=== PATIENT | female | born 1950 | race Caucasian/White ===

== ENCOUNTER → 2017-03-13 | Outpatient (CLI) | payer OTHER, MEDICARE ==
[~2017-03-13] MED LIST: ASPI500T50 PO; [UNRECOGNIZED DRUG - OTHER] PO
--- NOTE | 2017-03-13 14:54 | Diagnostic Imaging Report ---
PA and lateral views of the chest. INDICATION: Cough. FINDINGS: The lungs are clear. The heart size is normal. No effusion or pneumothorax. The mediastinum and karina appear unremarkable. IMPRESSION: Unremarkable exam. Dictated by: Dictated on workstation # [id number]
== END ==
LOC: RAD 14:23
PROVIDERS: ATTEND Nurse Practitioner
DX: R05 Cough (principal); Z87.891 Personal history of nicotine dependence
CPT/HCPCS: 71020

== ENCOUNTER → 2018-08-20 | Outpatient (CLI) | payer MEDICARE, OTHER ==
--- NOTE | 2018-08-20 11:41 | Diagnostic Imaging Report ---
CLINICAL INDICATION: Patient with vision problems and headache. EXAM: Axial CT scan of brain performed without IV contrast. COMPARISON: None. FINDINGS: Skull streak artifact obscures portions of the brainstem and posterior fossa. There is no evidence of acute cerebral infarct, intracranial hemorrhage, or gross mass effect. The brain parenchymal volume appears appropriate for patient's age. There is normal hensley-white matter distinction. There is no significant midline shift or herniation. There is no evidence of hydrocephalus. The basal cisterns are unremarkable. The skull, extracranial soft tissue, and orbits are unremarkable. The paranasal sinuses are unremarkable. Temporal bones show no significant abnormality. IMPRESSION: Unremarkable CT scan of the brain for age. Dictated by: Dictated on workstation # [id number]
== END ==
LOC: RAD 11:19
PROVIDERS: ATTEND Nurse Practitioner Family
DX: Z00.00 Encounter for general adult medical examination without abnormal findings (principal); G44.029 Chronic cluster headache, not intractable; H53.9 Unspecified visual disturbance; M79.644 Pain in right finger(s)
CPT/HCPCS: 70450

== ENCOUNTER → 2018-12-17 | Outpatient (CLI) | payer MEDICARE, OTHER ==
--- NOTE | 2018-12-17 13:24 | Diagnostic Imaging Report ---
PROCEDURE: CT cervical spine without contrast. TECHNIQUE: Multiple contiguous axial images were obtained through the cervical spine without the use of intravenous contrast. Sagittal and coronal reformations were then performed. INDICATION: Neck pain. COMPARISON: No prior studies are available for comparison. FINDINGS: There is some straightening of the normal cervical lordotic curvature. Minimal retrolisthesis of C5 on C6 is noted. There is degenerative disc disease at C5-6 and C6-7 levels with mild to moderate disc space narrowing and marginal spurring. Remaining cervical discs show normal height. Degenerative changes at C5-6 level also demonstrates uncovertebral joint change resulting in moderate neural foraminal narrowing. There appears to be some mild central canal narrowing as well. All other levels demonstrate patent bony canal and neural foramina. Odontoid is intact. No fractures are seen. The prevertebral tissues are within normal limits. IMPRESSION: Lower cervical spondylosis with mild central canal and moderate neural foraminal narrowing at C5-6 level. No acute bony abnormality is detected. Dictated by: Dictated on workstation # [id number]
--- NOTE | 2018-12-17 13:25 | Diagnostic Imaging Report ---
PROCEDURE: CT thoracic spine without contrast. TECHNIQUE: Multiple axial computerized tomography images were obtained from the base of the thoracic spine to the vertex without intravenous contrast. INDICATION: Back pain and spinal stenosis. COMPARISON: No prior studies are available for comparison. FINDINGS: There is mild right convexity thoracic scoliotic curvature. There is normal kyphotic curvature. The vertebral body heights are maintained. No acute compression fracture is seen. There is generalized thoracic spondylosis with variable disc space narrowing and marginal spurring. The paraspinous tissues are unremarkable. The bony canal appears to be patent. IMPRESSION: Generalized thoracic spondylosis. No acute bony abnormality is detected. Dictated by: Dictated on workstation # [id number]
== END ==
LOC: RAD 12:04
PROVIDERS: ATTEND Family Medicine
DX: M48.02 Spinal stenosis, cervical region (principal); M47.812 Spondylosis without myelopathy or radiculopathy, cervical region; M48.04 Spinal stenosis, thoracic region; M47.814 Spondylosis without myelopathy or radiculopathy, thoracic region
CPT/HCPCS: 72125; 72128

== ENCOUNTER 2019-01-04 17:47 | Emergency (ER) | payer MEDICARE, OTHER ==
[~2019-01-04] VITALS: Ht 171.4 cm; Wt 77.1 kg
--- OUTSIDE RECORDS SUMMARY | 2019-01-04 17:54 | XMS REPORT | Continuity of Care Document ---
Author Author [facility] Organization [facility] Address Unknown Phone Unavailable Allergies Active Description Code Type Severity Reaction Onset Reported/Identified Relationship to Patient Clinical Status Yes ANTIHISTIMINES ANTIHISTIMINES Unknown N/A 04/30/2012 Yes DECONGESTANTS DECONGESTANTS Unknown N/A 04/30/2012 Yes SOME ANITBIOTICS SOME ANITBIOTICS Unknown N/A 04/30/2012 Medications There is no data. Problems Date Dx Coded Attending Type Code Diagnosis Diagnosed By 01/07/2015 EFREN KEENE MD Ot 462 ACUTE PHARYNGITIS 01/07/2015 EFREN KEENE MD Ot 464.00 ACUTE LARYNGITIS W/O OBSTRUCTION 01/07/2015 EFREN KEENE MD Ot 465.9 ACUTE URI NOS 01/10/2015 EFREN KEENE MD Ot 462 01/10/2015 EFREN KEENE MD Ot 464.00 01/10/2015 EFREN KEENE MD Ot 465.9 01/10/2015 EFREN KEENE MD Ot 462 01/10/2015 EFREN KEENE MD Ot 464.00 01/10/2015 EFREN KEENE MD Ot 465.9 08/21/2016 MIRIAM MURRAY MD R Ot M16.12 UNILATERAL PRIMARY OSTEOARTHRITIS, LEFT 08/21/2016 MIRIAM MURRAY MD R Ot M25.552 PAIN IN LEFT HIP 08/21/2016 MIRIAM MURARY MD R Ot M48.06 SPINAL STENOSIS, LUMBAR REGION 08/21/2016 MIRIAM MURRAY MD R Ot M51.26 OTHER INTERVERTEBRAL DISC DISPLACEMENT, 08/21/2016 MIRIAM MURRAY MD R Ot M54.10 RADICULOPATHY, SITE UNSPECIFIED 08/31/2016 MIRIAM MURRAY MD R Ot M16.12 UNILATERAL PRIMARY OSTEOARTHRITIS, LEFT 08/31/2016 SEGLIE MD, MIRIAM R Ot M25.552 PAIN IN LEFT HIP 08/31/2016 TERRI RODRIGUES, MIRIAM R Ot M48.06 SPINAL STENOSIS, LUMBAR REGION 08/31/2016 TERRI RODRIGUES MIRIAM R Ot M51.26 OTHER INTERVERTEBRAL DISC DISPLACEMENT, 08/31/2016 TERRI RODRIGUES MIRIAM R Ot M54.10 RADICULOPATHY, SITE UNSPECIFIED 08/31/2016 KHOA KENYON MD Ot M16.12 UNILATERAL PRIMARY OSTEOARTHRITIS, LEFT 08/31/2016 KHOA KENYON MD Ot M51.16 INTERVERTEBRAL DISC DISORDERS W RADICULO 08/31/2016 KHOA KENYON MD Ot Z79.899 OTHER SECRET CODE EXPERT (CURRENT) DRUG THERAPY 09/05/2016 MIRIAM MURRAY MD R Ot M16.12 UNILATERAL PRIMARY OSTEOARTHRITIS, LEFT 09/05/2016 TERRI RODRIGUES MIRIAM R Ot M25.552 PAIN IN LEFT HIP 09/05/2016 RICCO MURRAY MDYD R Ot M48.06 SPINAL STENOSIS, LUMBAR REGION 09/05/2016 MIRIAM MURRAY MD R Ot M51.26 OTHER INTERVERTEBRAL DISC DISPLACEMENT, 09/05/2016 MIRIAM MURRAY MD R Ot M54.10 RADICULOPATHY, SITE UNSPECIFIED 09/10/2016 MIRIAM MURRAY MD R Ot M16.12 UNILATERAL PRIMARY OSTEOARTHRITIS, LEFT 09/10/2016 TERRI RODRIGUES MIRIAM R Ot M25.552 PAIN IN LEFT HIP 09/10/2016 TERRI RODRIGUES MIRIAM R Ot M48.06 SPINAL STENOSIS, LUMBAR REGION 09/10/2016 TERRI RODRIGUES MIRIAM R Ot M51.26 OTHER INTERVERTEBRAL DISC DISPLACEMENT, 09/10/2016 TERRI RODRIGUES MIRIAM R Ot M54.10 RADICULOPATHY, SITE UNSPECIFIED 09/20/2016 KHOA KENYON MD Ot M16.12 UNILATERAL PRIMARY OSTEOARTHRITIS, LEFT 09/20/2016 KHOA KENYON MD, Ot M51.16 INTERVERTEBRAL DISC DISORDERS W RADICULO 09/20/2016 KHOA KENYON MD Ot Z79.899 OTHER LONG-TERM (CURRENT) DRUG THERAPY 10/15/2016 MIRIAM MURRAY MD R Ot M16.12 UNILATERAL PRIMARY OSTEOARTHRITIS, LEFT 10/15/2016 MIRIAM MURRAY MD R Ot M25.552 PAIN IN LEFT HIP 10/15/2016 TERRI RODRIGUES, MIRIAM R Ot M48.06 SPINAL STENOSIS, LUMBAR REGION 10/15/2016 TERRI RODRIGUES, MIRIAM R Ot M51.26 OTHER INTERVERTEBRAL DISC DISPLACEMENT, 10/15/2016 TERRI RODRIGUES, MIRIAM R Ot M54.10 RADICULOPATHY, SITE UNSPECIFIED 10/17/2016 CHANTALE RODRIGUSE, KHOA [place] Ot M25.552 PAIN IN LEFT HIP 10/17/2016 CHANTAEL RODRIGUES, KHOA [place] Ot M54.5 LOW BACK PAIN 11/07/2016 CHANTALE RODRIGUES, KHOA [place] Ot M25.552 PAIN IN LEFT HIP 11/07/2016 CHANTALE RODRIGUES, KHOA [place] Ot M54.5 LOW BACK PAIN 03/13/2017 TERRI RODRIGUES MIRIAM R Ot M16.12 UNILATERAL PRIMARY OSTEOARTHRITIS, LEFT 03/13/2017 TERRI RODRIGUES, MIRIAM R Ot M25.552 PAIN IN LEFT HIP 03/13/2017 MIRIAM MURRAY MD R Ot M48.06 SPINAL STENOSIS, LUMBAR REGION 03/13/2017 MIRIAM MURRAY MD R Ot M51.26 OTHER INTERVERTEBRAL DISC DISPLACEMENT, 03/13/2017 RICCO MURRAY MDYD R Ot M54.10 RADICULOPATHY, SITE UNSPECIFIED 03/19/2017 MARIKA RILEY CEMENTER MACHINE Ot R05 COUGH 03/19/2017 MARIKA RILEY CEMENTER MACHINE Ot Z87.891 PERSONAL HISTORY OF NICOTINE DEPENDENCE 04/05/2017 MARKIA RILEY CEMENTER MACHINE Ot R05 COUGH 04/05/2017 MARIKA RILEY CEMENTER MACHINE Ot Z87.891 PERSONAL HISTORY OF NICOTINE DEPENDENCE 04/25/2017 MARIKA RILEY CEMENTER MACHINE Ot R05 COUGH 04/25/2017 MARIKA RILEY CEMENTER MACHINE Ot Z87.891 PERSONAL HISTORY OF NICOTINE DEPENDENCE 08/18/2018 TERRI RODRIGUES MIRIAM R Ot M16.12 UNILATERAL PRIMARY OSTEOARTHRITIS, LEFT 08/18/2018 TERRI RODRIGUES MIRIAM R Ot M25.552 PAIN IN LEFT HIP 08/18/2018 RICCO MURRAY MDYD R Ot M48.06 SPINAL STENOSIS, LUMBAR REGION 08/18/2018 TERRI RODRIGUES MIRIAM R Ot M51.26 OTHER INTERVERTEBRAL DISC DISPLACEMENT, 08/18/2018 TERRI RODRIGUES MIRIAM R Ot M54.10 RADICULOPATHY, SITE UNSPECIFIED 08/18/2018 MARIKA RILEY CEMENTER MACHINE Ot R05 COUGH 08/18/2018 MARIKA RILEY CEMENTER MACHINE Ot Z87.891 PERSONAL HISTORY OF NICOTINE DEPENDENCE 08/21/2018 THANH ROCKWELL R CEMENTER MACHINE Ot G44.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 CLUSTER HEADACHE, NOT INTRACTABL 08/21/2018 MOIZ THANH R CEMENTER MACHINE Ot H53.9 UNSPECIFIED VISUAL DISTURBANCE 08/21/2018 MOIZ THANH R CEMENTER MACHINE Ot M79.644 PAIN IN RIGHT FINGER(S) 08/21/2018 MOIZ THANH R CEMENTER MACHINE Ot Z00.00 ENCNTR FOR GENERAL ADULT MEDICAL EXAM W/ 09/09/2018 MOIZ THANH R CEMENTER MACHINE Ot G44.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 CHRONIC CLUSTER HEADACHE, NOT INTRACTABL 09/09/2018 MOIZ THANH R CEMENTER MACHINE Ot H53.9 UNSPECIFIED VISUAL DISTURBANCE 09/09/2018 MOIZ THANH R CEMENTER MACHINE Ot M79.644 PAIN IN RIGHT FINGER(S) 09/09/2018 MOIZ THANH R CEMENTER MACHINE Ot Z00.00 ENCNTR FOR GENERAL ADULT MEDICAL EXAM W/ 12/16/2018 TERRI RODRIGUES, MIRIAM R Ot M16.12 UNILATERAL PRIMARY OSTEOARTHRITIS, LEFT 12/16/2018 TERRI RODRIGUES, MIRIAM R Ot M25.552 PAIN IN LEFT HIP 12/16/2018 TERRI RODRIGUES, MIRIAM R Ot M48.06 SPINAL STENOSIS, LUMBAR REGION 12/16/2018 TERRI RODRIGUES, MIRIAM R Ot M51.26 OTHER INTERVERTEBRAL DISC DISPLACEMENT, 12/16/2018 TERRI RODRIGUES, MIRIAM R Ot M54.10 RADICULOPATHY, SITE UNSPECIFIED 12/16/2018 MARIKA RILYE CEMENTER MACHINE Ot R05 COUGH 12/16/2018 MARIKA RILEY CEMENTER MACHINE Ot Z87.891 PERSONAL HISTORY OF NICOTINE DEPENDENCE 12/16/2018 THANH ROCKWELL R CEMENTER MACHINE Ot 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 Results There is no data. Encounters ACCT No. Visit Date/Time Discharge Status Pt. Type Provider Facility Loc./Unit Complaint [id number] 12/17/2018 12:04:00 12/17/2018 23:59:59 CLS Outpatient MIRIAM MURRAY MD [facility] RAD NECK PAIN [id number] 12/09/2018 14:29:00 12/09/2018 23:59:59 CLS Preadmit MIRIAM MURRAY MD [facility] RAD ABNORMAL XRAY [id number] 08/20/2018 11:19:00 08/20/2018 23:59:59 CLS Outpatient THANH ROCKWELL CEMENTER MACHINE [facility] RAD THUMB PAIN [id number] 03/13/2017 14:23:00 03/13/2017 23:59:59 CLS Outpatient MARIKA RILEY CEMENTER MACHINE [facility] RAD COUGH,HX SMOKER [id number] 09/28/2016 10:32:00 11/07/2016 13:44:00 DIS Outpatient KHOA KENYON MD [facility] REHAB LUMBAGO, L HIP PAIN [id number] 08/31/2016 07:51:00 08/31/2016 09:02:00 DIS Outpatient KHOA KENYON MD [facility] CARD M51.16 [id number] 08/17/2016 09:46:00 08/17/2016 23:59:59 CLS Outpatient MIRIAM MURRAY MD [facility] RAD LT HIP DECREASED ROM, RADICULOPATHY [id number] 01/07/2015 09:38:00 01/07/2015 23:59:59 CLS Emergency EFREN KEENE MD [facility] ER SORE THROAT/HEADACHE [id number] 01/04/2019 17:49:00 ACT Emergency CODY BERNSTEIN CEMENTER MACHINE [facility] ER LEFT CALF PAIN,SWELLING
[2019-01-04 18:25] LABS: BASOPHILS % (AUTO) 0 % (0-10); EOSINOPHILS # (AUTO) 0.1 10^3/uL (0.0-0.3); EOSINOPHILS % (AUTO) 1 % (0-10); HEMATOCRIT 41 % (35-52); HEMOGLOBIN 13.8 G/DL (11.5-16.0); LYMPHOCYTES # (AUTO) 2.2 X 10^3 (1.0-4.0); LYMPHOCYTES % (AUTO) 24 % (12-44); MEAN CORPUSCULAR HEMOGLOBIN 33 PG (25-34); MEAN CORPUSCULAR HGB CONC 34 G/DL (32-36); MEAN CORPUSCULAR VOLUME 98 FL (80-99); MEAN PLATELET VOLUME 9.7 FL (7.4-10.4); MONOCYTES # (AUTO) 0.4 X 10^3 (0.0-1.0); MONOCYTES % (AUTO) 5 % (0-12); NEUTROPHILS # (AUTO) 6.2 X 10^3 (1.8-7.8); NEUTROPHILS % (AUTO) 70 % (42-75); PLATELET COUNT 269 10^3/uL (130-400); RED CELL DISTRIBUTION WIDTH 12.9 % (10.0-14.5); WHITE BLOOD COUNT 8.9 10^3/uL (4.3-11.0)
--- NOTE | 2019-01-04 18:33 | ED Lower Extremity ---
General Chief Complaint: Lower Extremity Stated Complaint: LEFT CALF PAIN,SWELLING Source: patient Exam Limitations: no limitations History of Present Illness Date Seen by Provider: Jan 04, 2019 Time Seen by Provider: 18:29 Initial Comments To ER with c/o left calf pain and swelling x2-3 days. No known injury. States that she has a sister who has had blood clots. She herself has never had blood clots however. She does smoke. She does not take any exogenous estrogen. She states that she did personally test positive for antiphospholipid syndrome. She takes baby aspirin daily. No other anticoagulants. Onset: yesterday Severity: moderate Pain/Injury Location: left leg Modifying Factors: Worse With Movement Allergies and Home Medications Allergies Uncoded Allergies: ANTIHISTIMINES (Allergy, 04/30/12) DECONGESTANTS (Allergy, 04/30/12) SOME ANITBIOTICS (Adverse Reaction, 04/30/12) STOMACH UPSET Home Medications [Essgic] , 1 TAB PO NEEDED, (Reported) FOR HEADACHE Patient Home Medication List Home Medication List Reviewed: Yes Review of Systems Constitutional: see HPI EENTM: see HPI Respiratory: no symptoms reported Cardiovascular: no symptoms reported Genitourinary: no symptoms reported Musculoskeletal: no symptoms reported Past Xxpidwq-Qndupg-Mshfmn Hx Patient Social History Alcohol Use: Denies Use Recreational Drug Use: No Smoking Status: Current Everyday Smoker Type Used: Cigarettes 2nd Hand Smoke Exposure: Yes Recent Foreign Travel: No Contact w/Someone Who Travel: No Physical Abuse: No Sexual Abuse: No Past Medical History Surgeries: Yes Gallbladder, Hysterectomy, Orthopedic Respiratory: Yes Cardiac: No Neurological: Yes Headaches /Migraines Gastrointestinal: Yes (DIVERTICULOSIS) Musculoskeletal: No Endocrine: No Cancer: No Psychosocial: No Blood Disorders: Yes Physical Exam Vital Signs Vital Signs - First Documented 01/04/19 17:54 Temp 98.3 Pulse 97 Resp 15 B/P (MAP) 121/86 (98) Pulse Ox 95 O2 Delivery Room Air Capillary Refill : Height, Weight, BMI Height: 5'7.00" Weight: 170lbs. 0.0oz. 77.930000tf; 26.6 BMI Method:Stated General Appearance: WD/WN, no apparent distress HEENT: PERRL/EOMI, normal ENT inspection Cardiovascular: regular rate, rhythm, no murmur Respiratory: no respiratory distress, no accessory muscle use Gastrointestinal: normal bowel sounds, non tender, soft Hips: bilateral hip non-tender, bilateral hip normal inspection, bilateral hip normal range of motion Legs: left leg swelling, left leg other (very minimal but present swelling. Strong dorsalis pedis pulse.) Knees: bilateral knee non-tender, bilateral knee normal inspection, bilateral knee normal range of motion Ankles: bilateral ankle non-tender, bilateral ankle normal inspection, bilateral ankle normal range of motion Feet: bilateral foot non-tender, bilateral foot normal inspection, bilateral foot normal range of motion Neurologic/Psychiatric: alert, normal mood/affect, oriented x 3 Skin: normal color, warm/dry Progress/Results/Core Measures Results/Orders Lab Results Laboratory Tests Test 01/04/19 18:10 Range/Units White Blood Count 8.9 4.3-11.0 10^3/uL Red Blood Count 4.16 L 4.35-5.85 10^6/uL Hemoglobin 13.8 11.5-16.0 G/DL Hematocrit 41 35-52 % Mean Corpuscular Volume 98 80-99 FL Mean Corpuscular Hemoglobin 33 25-34 PG Mean Corpuscular Hemoglobin Concent 34 32-36 G/DL Red Cell Distribution Width 12.9 10.0-14.5 % Platelet Count 269 130-400 10^3/uL Mean Platelet Volume 9.7 7.4-10.4 FL Neutrophils (%) (Auto) 70 42-75 % Lymphocytes (%) (Auto) 24 12-44 % Monocytes (%) (Auto) 5 0-12 % Eosinophils (%) (Auto) 1 0-10 % Basophils (%) (Auto) 0 0-10 % Neutrophils # (Auto) 6.2 1.8-7.8 X 10^3 Lymphocytes # (Auto) 2.2 1.0-4.0 X 10^3 Monocytes # (Auto) 0.4 0.0-1.0 X 10^3 Eosinophils # (Auto) 0.1 0.0-0.3 10^3/uL Basophils # (Auto) 0.0 0.0-0.1 10^3/uL Sodium Level 141 135-145 MMOL/L Potassium Level 4.1 3.6-5.0 MMOL/L Chloride Level 106 98-107 MMOL/L Carbon Dioxide Level 25 21-32 MMOL/L Anion Gap 10 5-14 MMOL/L Blood Urea Nitrogen 8 7-18 MG/DL Creatinine 0.74 0.60-1.30 MG/DL Estimat Glomerular Filtration Rate > 60 BUN/Creatinine Ratio 11 Glucose Level 98 70-105 MG/DL Calcium Level 9.6 8.5-10.1 MG/DL Corrected Calcium 9.6 8.5-10.1 MG/DL Total Bilirubin 0.2 0.1-1.0 MG/DL Aspartate Amino Transf (AST/SGOT) 18 5-34 U/L Alanine Aminotransferase (ALT/SGPT) 45 0-55 U/L Alkaline Phosphatase 133 40-136 U/L Total Protein 7.0 6.4-8.2 GM/DL Albumin 4.0 3.2-4.5 GM/DL My Orders Orders - CODY BERNSTEIN DIRECTOR CUSTOMER Us Venous Lower Ext Lt (01/04/19 17:51) Cbc With Automated Diff (01/04/19 17:51) Comprehensive Metabolic Panel (01/04/19 17:51) Vital Signs/I&O 01/04/19 17:54 Temp 98.3 Pulse 97 Resp 15 B/P (MAP) 121/86 (98) Pulse Ox 95 O2 Delivery Room Air Departure Communication (Admissions) Family Conversation 0-she has positive for DVT on ultrasound. I discussed with her shortness of breath or chest pain. She has had some right posterior lower chest wall pain for the past week. She's been treated for bronchitis with antibiotics. She is finishing her antibiotic tomorrow. She does have some chronic shortness of breath and states that she is a little more short of breath for the past week but she attributes that to COPD from smoking. I did recommend a CT angiogram of the chest but advised her that it would not likely change our treatment plan since she is not tachycardic, not hypotensive and not hypoxic. If it were present, it would be a small clot burden given her hemodynamic stability. She states "then why would we even do it?". After further discussion she does not want to proceed with a CT angiogram of the chest since it will not change our management plan given her hemodynamic stability. We will discharge to home on Eliquis, follow-up with Dr. Romeo this week. She agrees with this plan and is very pleasant and appreciative of care. NAME: JOSÉ MIGUEL RIVERA [facility] REC#: [id number] PT STATUS: REG ER : 1950 PHYSICIAN: CODY BERNSTEIN APRN ADMIT DATE: 01/04/19/ER Draft Date of Exam:01/04/19 US VENOUS LOWER EXT LT PROCEDURE: US left lower extremity venous. TECHNIQUE: Multiple real-time grayscale images were obtained over the left lower extremity in various projections. Additional duplex Doppler and color Doppler images were also obtained. DATE: January 04, 2019. INDICATION: 68-year-old female, left calf pain. COMPARISON: None. FINDINGS: The left common femoral vein and left popliteal vein appear compressible with normal flow. The visualized portions of the left deep femoral vein are patent. The left superficial femoral vein does demonstrate blood flow and response to augmentation. The left posterior tibial vein is incompletely compressible at the level of the mid calf. The left peroneal vein is noncompressible at the level of the midcalf likely relating to thrombus. IMPRESSION: Thrombus within the left posterior tibial and peroneal veins. Dictated on workstation # [id number] Dict: 01/04/191848 Trans: 01/04/[address] [facility] [id number] Interpreted by: KAIA SCHNEIDER MD Electronically signed by: Impression Primary Impression: Left leg DVT Qualified Codes: I82.442 - Acute embolism and thrombosis of left tibial vein Disposition: 01 HOME, SELF-CARE Condition: Stable Departure-Patient Inst. Decision time for Depature: 19:04 Referrals: MIRIAM ROMEO MD (PCP/Family) Primary Care Physician Patient Instructions: Deep Vein Thrombosis (Blood Clots in the Legs) (DC) Add. Discharge Instructions: 1. Use of compression stockings will help with swelling and may help reduce the subsequent discomfort and aching in the leg. Return to ER for any severe shortness of breath or other concerns. Call Dr. Romeo tomorrow to make an appointment to be seen for follow-up and to ask if he has any samples of Eliquis or prescription coupons. All discharge instructions reviewed with patient and/or family. Voiced understanding. Scripts Apixaban (Eliquis) 5 Mg Tablet 5 MG PO UD, #56 TAB 10 mg twice a day for 7 days then 5 mg twice a day thereafter Prov: CODY BERNSTEIN APRN 01/04/19 Copy Copies To 1: MIRIAM ROMEO MD, PETER J APRN Jan 04, 2019 18:33
[2019-01-04 18:43] LABS: ALANINE AMINOTRANSFERASE 45 U/L (0-55); ALKALINE PHOSPHATASE 133 U/L (40-136); BILIRUBIN,TOTAL 0.2 MG/DL (0.1-1.0); BUN/CREATININE RATIO 11; CALCIUM 9.6 MG/DL (8.5-10.1); CARBON DIOXIDE 25 MMOL/L (21-32); CHLORIDE 106 MMOL/L (98-107); CREATININE SERUM 0.74 MG/DL (0.60-1.30); GFR ESTIMATED > 60; GLUCOSE 98 MG/DL (70-105); POTASSIUM 4.1 MMOL/L (3.6-5.0); SODIUM 141 MMOL/L (135-145)
--- NOTE | 2019-01-04 18:53 | Diagnostic Imaging Report ---
PROCEDURE: US left lower extremity venous. TECHNIQUE: Multiple real-time grayscale images were obtained over the left lower extremity in various projections. Additional duplex Doppler and color Doppler images were also obtained. DATE: January 04, 2019. INDICATION: 68-year-old female, left calf pain. COMPARISON: None. FINDINGS: The left common femoral vein and left popliteal vein appear compressible with normal flow. The visualized portions of the left deep femoral vein are patent. The left superficial femoral vein does demonstrate blood flow and response to augmentation. The left posterior tibial vein is incompletely compressible at the level of the mid calf. The left peroneal vein is noncompressible at the level of the midcalf likely relating to thrombus. IMPRESSION: Thrombus within the left posterior tibial and peroneal veins. Dictated by: Dictated on workstation # [id number]
[2019-01-04] MEDS ORDERED: APIX5TAB PO (19:07)
[2019-01-04 19:15] VITALS: BP 124/79
[2019-01-04] MEDS ORDERED: APIXABAN 5 MG (ELIQUIS) TABLET PO SCH (19:15)
== END 2019-01-04 19:17 | disposition home or self-care (01) ==
LOC: EDUNIT# 17:47 → ER 17:49
DX: I82.402 Acute embolism and thrombosis of unspecified deep veins of left lower extremity (principal); G43.909 Migraine, unspecified, not intractable, without status migrainosus; F17.210 Nicotine dependence, cigarettes, uncomplicated; Z88.8 Allergy status to other drugs, medicaments and biological substances; Z79.82 Long term (current) use of aspirin; Z87.19 Personal history of other diseases of the digestive system; Z90.710 Acquired absence of both cervix and uterus
CPT/HCPCS: 36415; 80053; 85025

== ENCOUNTER → 2019-08-21 | Outpatient (CLI) | payer MEDICARE, OTHER ==
[~2019-08-21] MED LIST changes: +APIX5TAB PO
--- NOTE | 2019-08-21 10:56 | Diagnostic Imaging Report ---
CLINICAL INDICATION: Patient has increased low back pain. Patient has history of previous low back surgery in 1988. EXAM: MRI of the lumbar spine performed without IV contrast. Sequences include sagittal T2, sagittal T1, sagittal T2 fat-sat, and axial T2. COMPARISON: MRI of the lumbar spine without contrast dated 08/17/2016. FINDINGS: There is no acute lumbar spine fracture or dislocation. There are minimal Modic type I degenerative signal changes involving the L2-L3 and L5-S1 levels anteriorly. There are Modic type II degenerative signal changes involving the L5-S1 level and minimal amount involving the mid to lower lumbar spine anteriorly. The visualized portions of the distal thoracic spinal cord, conus medullaris, and cauda equina nerve roots are unremarkable. The conus medullaris tip is seen at the lower L1 vertebral body level. There are degenerative spurs seen throughout the lumbar spine which has progressed and lower lumbar spine facet arthropathy. There are again seen postop changes to the lower lumbar spine with L4-L5 laminotomy changes. L1-L2: Stable mild bilateral facet arthropathy. There is no significant central spinal canal or neural foramen narrowing. L2-L3: There is slight progression of the diffuse disc bulge with increased size of the small to moderate left subarticular and far left lateral disc extrusion/herniation with annular tear in the region. There is moderate to severe left neural foramen narrowing which has progressed. There is severe bilateral facet arthropathy/hypertrophy and ligamentum flavum buckling. There is moderate central canal stenosis which is not significantly changed. L3-L4: Stable mild diffuse disc bulge with mild loss of intervertebral disc height. There is severe bilateral facet arthropathy/hypertrophy and ligamentum flavum buckling. There is moderate to severe central canal narrowing which has not significantly changed. There is no significant neural foramen narrowing. L4-L5: There is a diffuse disc bulge with moderate loss of intervertebral disc height. There is stable mild left neural foramen narrowing and moderate right neural foramen narrowing. There is mild central canal narrowing. L5-S1: There is stable diffuse disc bulge with moderate loss of intervertebral disc height. There is moderate bilateral facet arthropathy. There is no significant central canal narrowing. There is no significant right neural foramen narrowing and mild left neural foramen narrowing which is stable. IMPRESSION: 1: Stable postop changes with L4-L5 laminotomy changes. 2: There is progression of L2-L3 diffuse disc bulge with superimposed left subarticular/far left lateral disc extrusion/herniation with annular tear. There is moderate to severe left neural foramen narrowing which has progressed. There is stable moderate L2-L3 central canal narrowing which is not significantly changed. 3: The remainder of the lumbar spine degenerative disease is not significantly changed in the interim. Dictated by: Dictated on workstation # [id number]
== END ==
LOC: RAD 09:34
PROVIDERS: ATTEND Family Medicine
DX: M51.16 Intervertebral disc disorders with radiculopathy, lumbar region (principal); M48.061 Spinal stenosis, lumbar region without neurogenic claudication; Z98.890 Other specified postprocedural states
CPT/HCPCS: 72148

== ENCOUNTER → 2019-12-03 | Outpatient (CLI) | payer MEDICARE, OTHER ==
--- NOTE | 2019-12-03 15:10 | Diagnostic Imaging Report ---
PROCEDURE: US Venous Lower Ext [place]. TECHNIQUE: Multiple real-time grayscale images were obtained over the lower extremities in various projections, bilaterally. Additional duplex Doppler and color Doppler images were also obtained. INDICATION: Prior history of DVT in the left leg. FINDINGS: There is no evidence of left or right lower extremity DVT. Both lower extremity deep venous systems shows normal compressibility with normal response to augmentation and Valsalva. No fluid collection or mass is detected. IMPRESSION: No evidence of right or left lower extremity DVT. Dictated by: Dictated on workstation # [id number]
== END ==
LOC: RAD 13:31
PROVIDERS: ATTEND Internal Medicine Hematology & Oncology
DX: Z86.718 Personal history of other venous thrombosis and embolism (principal)
CPT/HCPCS: 93970

== ENCOUNTER 2019-12-23 14:18 | Outpatient (RCR) | payer MEDICARE, OTHER ==
[2020-01-28] MEDS ORDERED: ASPI-808 PO (09:39)
== END 2020-03-01 | disposition home or self-care (01) ==
LOC: ONC 14:18
PROVIDERS: ATTEND Internal Medicine Hematology & Oncology
DX: I82.409 Acute embolism and thrombosis of unspecified deep veins of unspecified lower extremity (principal)
CPT/HCPCS: 85610; 85613; 85705; 85730; 86146; 86147; 99213; 99214

== ENCOUNTER 2020-01-27 06:06 | Outpatient (CLI) | payer MEDICARE, OTHER ==
[~2020-01-27] VITALS: Ht 170 cm; Wt 77.0 kg
[2020-01-28] MEDS ORDERED: ASPI-808 PO (09:39)
== END 2020-01-28 09:49 | disposition home or self-care (01) ==
LOC: PREOP 06:06
PROVIDERS: ATTEND Specialist
DX: Z01.818 Encounter for other preprocedural examination (principal)

== ENCOUNTER 2020-01-29 08:05 | Day surgery (SDC) | payer MEDICARE, OTHER ==
[~2020-01-29] VITALS: Ht 170 cm; Wt 77.0 kg
[~2020-01-29 08:05] MED LIST changes: +ASPI-808 PO
[2020-01-29] MEDS ORDERED: LIDOCAINE PF 1% 2 ML VIAL IR PRN (08:15)
[2020-01-29] MEDS ORDERED: POVIDONE (BETADINE) OPHTH SOLN 5% 30 ML OP ONE (08:15)
[2020-01-29] MEDS ORDERED: MOXIFLOXACIN OPHTH SOLN 5 MG/ML 0.3 ML SYRINGE OP ONE (08:15)
[2020-01-29] MEDS ORDERED: TIMOLOL MALEATE 0.5% 5 ML (TIMOPTIC) BTL OU PRN (08:15)
[2020-01-29 08:26] VITALS: BP 119/76
[2020-01-29] MEDS: TETRACAINE 0.5% OPHTH SOLN 4 ML BTL (SINGLE DOSE ONLY) OU PRN ×4 (08:27→08:59)
[2020-01-29] MEDS: CYCLOPENTOLATE 1% (CYCLOGYL) 2 ML DROPS OP SCH ×3 (08:45→08:59)
[2020-01-29] MEDS: PHENYLEPHRINE 10% OPHTH (NEO-SYN) 5 ML BTL OU SCH ×3 (08:45→08:59)
[2020-01-29] MEDS ORDERED: MIDAZOLAM 2 MG/2 ML (VERSED) VIAL ONE (09:20)
--- NOTE | 2020-01-29 09:22 | Ophthalmologist Pre-Op Note ---
Pre-Operative Progress Note H&P Reviewed The H&P was reviewed, patient examined and no changes noted. Date H&P Reviewed: Jan 29, 2020 Time H&P Reviewed: 09:22 Pre-Op Dx Cataract, Left Eye JOSUE GUAN MD Jan 29, 2020 09:22
--- NOTE | 2020-01-29 09:45 | Ophthalmology Operative Report ---
Cataract removal/placement IOL PREOPERATIVE DIAGNOSIS: Cataract Left Eye POSTOPERATIVE DIAGNOSIS: Cataract Left Eye PROCEDURE: Cataract removal and placement of posterior chamber implant, left eye SURGEON: Ede Guan ANESTHESIA: Topical with sedation COMPLICATIONS: None ESTIMATED BLOOD LOSS: Minimal DESCRIPTION OF PROCEDURE: After proper informed consent was obtained, the patient, a 69 female, was taken to the Operating Room and the left eye was anesthetized with tetracaine. The left eye was then prepped and draped in the usual manner. A wire lid speculum was placed. A paracentesis was made at the left hand position. Preservative free lidocaine was injected into the anterior chamber followed by viscoelastic. A clear corneal incision was made in the temporal position. A capsulorrhexis was preformed and the central nuclear and cortical material were removed. The posterior capsule was polished and an Cachorro 21.0 [id number] was placed into the capsular bag. The residual viscoelastic was aspirated and balanced saline solution was injected into the anterior chamber. Moxifloxacin was injected into the anterior chamber. The wound was checked and found to be water tight. The patient tolerated the procedure well without complications. EDE GUAN MD Jan 29, 2020 09:44
[2020-01-29 10:30] VITALS: BP 129/84
--- NOTE | 2020-01-29 13:53 | Anesthesia-General Post-Op ---
MAC Patient Condition Mental Status/LOC: Same as Preop Cardiovascular: Satisfactory Nausea/Vomiting: Absent Respiratory: Satisfactory Pain: Controlled Complications: Absent Post Op Complications Complications None Follow Up Care/Instructions Patient Instructions None needed. Anesthesiology Discharge Order Discharge Order Patient is doing well, no complaints, stable vital signs, no apparent adverse anesthesia problems. No complications reported per nursing. BRYAN BONILLA CRNA Jan 29, 2020 13:53
--- OUTSIDE RECORDS SUMMARY | 2020-02-02 05:08 | XMS REPORT | Continuity of Care Document ---
Author Organization Unknown Address Unknown Phone Unavailable Allergies Active Description Code Type Severity Reaction Onset Reported/Identified Relationship to Patient Clinical Status Yes ANTIHISTIMINES ANTIHISTIMINES Unknown N/A 01/29/2020 Yes DECONGESTANTS DECONGESTANTS Unknown N/A 01/29/2020 Yes SOME ANITBIOTICS SOME ANITBIOTICS Unknown N/A 01/29/2020 Medications There is no data. Problems Date Dx Coded Attending Type Code Diagnosis Diagnosed By 01/07/2015 EFREN KEENE MD Ot 462 ACUTE PHARYNGITIS 01/07/2015 EFREN KEENE MD Ot 464.00 ACUTE LARYNGITIS W/O OBSTRUCTION 01/07/2015 EFREN KEENE MD Ot 465 .9 ACUTE URI NOS 01/10/2015 EFREN KEENE MD Ot 462 01/10/2015 EFREN KEENE MD K Ot 464.00 01/10/2015 EFREN KEENE MD Ot 465 .9 01/10/2015 EFREN KEENE MD Ot 462 01/10/2015 JASSI RODRIGUES, EFREN K Ot 464.00 01/10/2015 EFREN KEENE MD K Ot 465 .9 08/21/2016 MIRIAM MURRAY MD R Ot M16. 12 UNILATERAL PRIMARY OSTEOARTHRITIS, LEFT 08/21/2016 MIRIAM MURRAY MD R Ot M25.552 PAIN IN LEFT HIP 08/21/2016 MIRIAM MURRAY MD R Ot M48. 06 SPINAL STENOSIS, LUMBAR REGION 08/21/2016 MIRIAM MURRAY MD R Ot M51. 26 OTHER INTERVERTEBRAL DISC DISPLACEMENT, 08/21/2016 MIRIAM MURRAY MD Ot M54. 10 RADICULOPATHY, SITE UNSPECIFIED 08/31/2016 MIRIAM MURRAY MD R Ot M16. 12 UNILATERAL PRIMARY OSTEOARTHRITIS, LEFT 08/31/2016 MIRIAM MURRAY MD R Ot M25.552 PAIN IN LEFT HIP 08/31/2016 SEGLIE MD, MIRIAM R Ot M48. 06 SPINAL STENOSIS, LUMBAR REGION 08/31/2016 TERRI RODRIGUES MIRIAM R Ot M51. 26 OTHER INTERVERTEBRAL DISC DISPLACEMENT, 08/31/2016 TERRI RODRIGUES MIRIAM R Ot M54. 10 RADICULOPATHY, SITE UNSPECIFIED 08/31/2016 KHOA KENYON MD Ot M16. 12 UNILATERAL PRIMARY OSTEOARTHRITIS, LEFT 08/31/2016 KHOA KENYON MD Ot M51. 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 12 UNILATERAL PRIMARY OSTEOARTHRITIS, LEFT 09/05/2016 TERRI RODRIGUES MIRIAM R Ot M25.552 PAIN IN LEFT HIP 09/05/2016 MIRIAM MURRAY MD R Ot M48. 06 SPINAL STENOSIS, LUMBAR REGION 09/05/2016 MIRIAM MURRAY MD R Ot M51. 26 OTHER INTERVERTEBRAL DISC DISPLACEMENT, 09/05/2016 TERRI RODRIGUES MIRIAM R Ot M54. 10 RADICULOPATHY, SITE UNSPECIFIED 09/10/2016 TERRI RODRIGUES MIRIAM R Ot M16. 12 UNILATERAL PRIMARY OSTEOARTHRITIS, LEFT 09/10/2016 TERRI RODRIGUES MIRIAM R Ot M25.552 PAIN IN LEFT HIP 09/10/2016 TERRI RODRIGUES MIRIAM R Ot M48. 06 SPINAL STENOSIS, LUMBAR REGION 09/10/2016 TERRI RODRIGUES MIRIAM R Ot M51. 26 OTHER INTERVERTEBRAL DISC DISPLACEMENT, 09/10/2016 TERRI RODRIGUES MIRIAM R Ot M54. 10 RADICULOPATHY, SITE UNSPECIFIED 09/20/2016 KHOA KENYON MD Ot M16. 12 UNILATERAL PRIMARY OSTEOARTHRITIS, LEFT 09/20/2016 KHOA KENYON MD Ot M51. 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 12 UNILATERAL PRIMARY OSTEOARTHRITIS, LEFT 10/15/2016 MIRIAM MURRAY MD R Ot M25.552 PAIN IN LEFT HIP 10/15/2016 SEGLIE MD, MIRIAM R Ot M48. 06 SPINAL STENOSIS, LUMBAR REGION 10/15/2016 TERRI RODRIGUES, MIRIAM R Ot M51. 26 OTHER INTERVERTEBRAL DISC DISPLACEMENT, 10/15/2016 TERRI RODRIGUES, MIRIAM R Ot M54. 10 RADICULOPATHY, SITE UNSPECIFIED 10/17/2016 CHANTALE RODRIGUES, KHOA [place] Ot M25.552 PAIN IN LEFT HIP 10/17/2016 CHANTALE RODRIGUES, KHOA [place] Ot M54. 5 LOW BACK PAIN 11/07/2016 CHANTALE RODRIGUES, KHOA [place] Ot M25.552 PAIN IN LEFT HIP 11/07/2016 CHANTALE RODRIGUES, KHOA [place] Ot M54. 5 LOW BACK PAIN 03/13/2017 TERRI RODRIGUES, MIRIAM R Ot M16. 12 UNILATERAL PRIMARY OSTEOARTHRITIS, LEFT 03/13/2017 TERRI RODRIGUES, MIRIAM R Ot M25.552 PAIN IN LEFT HIP 03/13/2017 TERRI RODRIGUES, MIRIAM R Ot M48. 06 SPINAL STENOSIS, LUMBAR REGION 03/13/2017 TERRI RODRIGUES, MIRIAM R Ot M51. 26 OTHER INTERVERTEBRAL DISC DISPLACEMENT, 03/13/2017 TERRI RODRIGUES, MIRIAM R Ot M54. 10 RADICULOPATHY, SITE UNSPECIFIED 03/19/2017 MARIKA RILEY [employer] Ot R0 5 COUGH 03/19/2017 MARIKA [employer]LEY [employer] Ot Z87.891 PERSONAL HISTORY OF NICOTINE DEPENDENCE 04/05/2017 MARIKA [facility]LEY [employer] Ot R0 5 COUGH 04/05/2017 MARIKA [facility]LEY [employer] Ot Z87.891 PERSONAL HISTORY OF NICOTINE DEPENDENCE 04/25/2017 MARIKA [facility]LEY [employer] Ot R0 5 COUGH 04/25/2017 MARIKA [facility]LEY [employer] Ot Z87.891 PERSONAL HISTORY OF NICOTINE DEPENDENCE 08/18/2018 TERRI RODRIGUES, MIRIAM R Ot M16. 12 UNILATERAL PRIMARY OSTEOARTHRITIS, LEFT 08/18/2018 TERRI RODRIGUES, MIRIAM R Ot M25.552 PAIN IN LEFT HIP 08/18/2018 RICCO MURRAY MDYD R Ot M48. 06 SPINAL STENOSIS, LUMBAR REGION 08/18/2018 TERRI RODRIGUES, MIRIAM R Ot M51. 26 OTHER INTERVERTEBRAL DISC DISPLACEMENT, 08/18/2018 TERRI RODRIGUES MIRIAM R Ot M54. 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 08/21/2018 MOIZ, THANH R [employer] Ot H53.9 UNSPECIFIED VISUAL DISTURBANCE 08/21/2018 MOIZ, THANH R [employer] Ot M79.644 PAIN IN RIGHT FINGER(S) 08/21/2018 MOIZ THANH [employer] Ot Z00.00 ENCNTR FOR GENERAL ADULT MEDICAL EXAM W09/09/2018 MOIZ THANH R [employer] Ot G44.029 CHRONIC CLUSTER HEADACHE, NOT INTRACTABL 09/09/2018 MOIZ THANH R [employer] Ot H53.9 UNSPECIFIED VISUAL DISTURBANCE 09/09/2018 MOIZ, THANH R [employer] Ot M79.644 PAIN IN RIGHT FINGER(S) 09/09/2018 MOIZ THANH R [employer] Ot Z00.00 ENCNTR FOR GENERAL ADULT MEDICAL EXAM W12/16/2018 TERRI RODRIGUES, MIRIAM R Ot M16. 12 UNILATERAL PRIMARY OSTEOARTHRITIS, LEFT 12/16/2018 TERRI RODRIGUES, MIRIAM R Ot M25.552 PAIN IN LEFT HIP 12/16/2018 TERRI RODRIGUES, MIRIAM R Ot M48. 06 SPINAL STENOSIS, LUMBAR REGION 12/16/2018 TERRI RODRIGUES, MIRIAM R Ot M51. 26 OTHER INTERVERTEBRAL DISC DISPLACEMENT, 12/16/2018 TERRI RODRIGUES, MIRIAM R Ot M54. 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 CLUSTER HEADACHE, NOT INTRACTABL 12/16/2018 MOIZ THANH R [employer] Ot H53.9 UNSPECIFIED VISUAL DISTURBANCE 12/16/2018 MOIZ THANH R [employer] Ot M79.644 PAIN IN RIGHT FINGER(S) 12/16/2018 MOIZ THANH R [employer] Ot Z00.00 ENCNTR FOR GENERAL ADULT MEDICAL EXAM 01/04/2019 CODY BERNSTEIN [employer] Ot F17.210 NICOTINE DEPENDENCE, CIGARETTES, UNCOMPL 01/04/2019 CODY [facility] [employer] Ot G43.909 MIGRAINE, UNSP, NOT INTRACTABLE, WITHOUT 01/04/2019 CODY BERNSTEIN APRN Ot I82.402 ACUTE EMBOLISM AND THOMBOS UNSP DEEP VEI 01/04/2019 CODY BERNSTEIN APRN Ot M79.662 PAIN IN LEFT LOWER LEG 01/04/2019 CODY BERNSTEIN APRN Ot 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 12 UNILATERAL PRIMARY OSTEOARTHRITIS, LEFT 01/04/2019 MIRIAM MURRAY MD R Ot M25.552 PAIN IN LEFT HIP 01/04/2019 MIRIAM MURRAY MD R Ot M48. 06 SPINAL STENOSIS, LUMBAR REGION 01/04/2019 MIRIAM MURRYA MD R Ot M51. 26 OTHER INTERVERTEBRAL DISC DISPLACEMENT, 01/04/2019 MIRIAM MURRAY MD R Ot M54. 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 02 SPINAL STENOSIS, CERVICAL REGION 01/04/2019 TERRI RODRIGUES, MIRIAM R Ot M48. 04 SPINAL STENOSIS, THORACIC REGION 01/06/2019 CODY BERNSTEIN APRN Ot F17.210 NICOTINE DEPENDENCE, CIGARETTES, UNCOMPL 01/06/2019 CODY BERNSTEIN APRN Ot G43.909 MIGRAINE, UNSP, NOT INTRACTABLE, WITHOUT 01/06/2019 CODY BERNSTEIN APRN Ot I82.402 ACUTE EMBOLISM AND THOMBOS UNSP DEEP VEI 01/06/2019 CODY BERNSTEIN APRN Ot M79.662 PAIN IN LEFT LOWER LEG 01/06/2019 CODY BERNSTEIN APRN Ot Z79.82 HALFWAY (CURRENT) USE OF ASPIRIN 01/06/2019 CODY BERNSTEIN APRN Ot Z87.19 PERSONAL HISTORY OF OTHER DISEASES OF TH 01/06/2019 CODY BERNSTEIN APRN Ot Z88 .8 ALLERGY STATUS TO OT DRUG/MEDS/BIOL SUB 01/06/2019 CODY BERNSTEIN APRN Ot Z90.710 ACQUIRED ABSENCE OF BOTH CERVIX AND UTER 01/07/2019 TERRI RODRIGUES, MIRIAM R Ot M47.812 SPONDYLOSIS W/O MYELOPATHY OR RADICULOPA 01/07/2019 TERRI RODRIGUES MIRIAM R Ot M47.814 SPONDYLOSIS W/O MYELOPATHY OR RADICULOPA 01/07/2019 TERRI RODRIGUES, MIRIAM R Ot M48. 02 SPINAL STENOSIS, CERVICAL REGION 01/07/2019 TERRI RODRIGUES MIRIAM R Ot M48. 04 SPINAL STENOSIS, THORACIC REGION 01/10/2019 CODY BERNSTEIN APRN Ot F17.210 NICOTINE DEPENDENCE, CIGARETTES, UNCOMPL 01/10/2019 CODY BERNSTEIN APRN Ot G43.909 MIGRAINE, UNSP, NOT INTRACTABLE, WITHOUT 01/10/2019 CODY BERNSTEIN APRN Ot I82.402 ACUTE EMBOLISM AND THOMBOS UNSP DEEP VEI 01/10/2019 CODY BERNSTEIN APRN Ot M79.662 PAIN IN LEFT LOWER LEG 01/10/2019 CODY BERNSTEIN APRN Ot Z79.82 HALFWAY (CURRENT) USE OF ASPIRIN 01/10/2019 BERNSTEIN, PETER J [employer] Ot Z87.19 PERSONAL HISTORY OF OTHER DISEASES OF TH 01/10/2019 CODY BERNSTEIN [employer] Ot Z88 .8 ALLERGY STATUS TO OTH DRUG/MEDS/BIOL SUB 01/10/2019 CODY BERNSTEIN [employer] Ot Z90.710 ACQUIRED ABSENCE OF BOTH CERVIX AND UTER 08/27/2019 TERRI RODRIGUES, MIRIAM R Ot M48.061 SPINAL STENOSIS, LUMBAR REGION WITHOUT N 08/27/2019 MIRIAM MURRAY MD R Ot M51. 16 INTERVERTEBRAL DISC DISORDERS W RADICULO 08/27/2019 MIRIAM MURRAY MD R Ot Z98.890 OTHER SPECIFIED POSTPROCEDURAL STATES 11/03/2019 MIRIAM MURRAY MD R Ot M16. 12 UNILATERAL PRIMARY OSTEOARTHRITIS, LEFT 11/03/2019 TERRI RODRIGUES, MIRIAM R Ot M25.552 PAIN IN LEFT HIP 11/03/2019 MIRIAM MURRAY MD R Ot M48. 06 SPINAL STENOSIS, LUMBAR REGION 11/03/2019 MIRIAM MURRAY MD R Ot M51. 26 OTHER INTERVERTEBRAL DISC DISPLACEMENT, 11/03/2019 MIRIAM MURRAY MD R Ot M54. 10 RADICULOPATHY, SITE UNSPECIFIED 11/03/2019 MARIKA RILEY [employer] [facility] Ot R0 5 COUGH 11/03/2019 MARIKA RILEY [employer] Ot Z87.891 PERSONAL HISTORY OF NICOTINE DEPENDENCE 11/03/2019 THANH ROCKWELL [employer] Ot G44.029 CHRONIC CLUSTER HEADACHE, NOT INTRACTABL 11/03/2019 THANH ROCKWELL [employer] Ot H53.9 UNSPECIFIED VISUAL DISTURBANCE 11/03/2019 THANH ROCKWELL [employer] Ot M79.644 PAIN IN RIGHT FINGER(S) 11/03/2019 THANH ROCKWELL [employer] Ot Z00.00 ENCNTR FOR GENERAL ADULT MEDICAL EXAM W/ 11/03/2019 TERRI RODRIGUES, MIRIAM R Ot M47.812 SPONDYLOSIS W/O MYELOPATHY OR RADICULOPA 11/03/2019 MIRIAM MURRAY MD R Ot M47.814 SPONDYLOSIS W/O MYELOPATHY OR RADICULOPA 11/03/2019 MIRIAM MURRAY MD R Ot M48. 02 SPINAL STENOSIS, CERVICAL REGION 11/03/2019 MIRIAM MURRAY MD R Ot M48. 04 SPINAL STENOSIS, THORACIC REGION 11/03/2019 MIRIAM MURRAY MD Ot M48.061 SPINAL STENOSIS, LUMBAR REGION WITHOUT N 11/03/2019 MIRIAM MURRAY MD Ot M51. 16 INTERVERTEBRAL DISC DISORDERS W RADICULO 11/03/2019 MIRIAM MURRAY MD Ot Z98.890 OTHER SPECIFIED POSTPROCEDURAL STATES 12/03/2019 JOSE LEAL MD Ot R22.43 LOCALIZED SWELLING, MASS AND LUMP, LOWER 12/03/2019 JOSE LEAL MD Ot R22.43 LOCALIZED SWELLING, MASS AND LUMP, LOWER 12/06/2019 JOSE LEAL MD Ot Z86.718 PERSONAL HISTORY OF OTHER VENOUS THROMBO 12/15/2019 JOSE LEAL MD, Ot I82.409 ACUTE EMBOLISM AND THOMBOS UNSP DEEP VN 12/31/2019 JOSE LEAL MD, Ot Z86.718 PERSONAL HISTORY OF OTHER VENOUS THROMBO 01/19/2020 JOSE LEAL MD, Ot I82.409 ACUTE EMBOLISM AND THOMBOS UNSP DEEP VN 01/28/2020 JOSUE GUAN MD Ot Z01.818 ENCOUNTER FOR OTHER PREPROCEDURAL EXAMIN 01/28/2020 JOSUE GUAN MD Ot Z01.818 ENCOUNTER FOR OTHER PREPROCEDURAL EXAMIN 01/28/2020 JOSUE GUAN MD, Ot Z01.818 ENCOUNTER FOR OTHER PREPROCEDURAL EXAMIN Procedures There is no data. Results Test Result Range Complete blood count (CBC) with automate d white blood cell (WBC) differential - 01/04/19 18:10 Blood leukocytes automated count (number/volume) 8.9 10*3/uL 4.3-11.0 Blood erythrocytes automated count (number/volume) 4.16 10*6/uL 4.35-5.85 Venous blood hemoglobin measurement (mass/volume) 13.8 g/dL 11.5-16.0 Blood hematocrit (volume fraction) 41 % 35-52 Automated erythrocyte mean corpuscular volume 98 [ foz_us] 80-99 Automated erythrocyte mean corpuscular h emoglobin (mass per erythrocyte) 33 pg 25-34 Automated erythrocyte mean corpuscular h emoglobin concentration measurement (mass/volume) 34 g/dL 32-36 Automated erythrocyte distribution width ratio 12. 9 % 10.0- 14.5 Automated blood platelet count (count/volume) 269 10*3/uL 130-400 Automated blood platelet mean volume measurement 9.7 [foz_us] 7.4-10.4 Automated blood neutrophils/100 leukocytes 70 % 42-75 Automated blood lymphocytes/100 leukocytes 24 % 12-44 Blood monocytes/100 leukocytes 5 % 0-12 Automated blood eosinophils/100 leukocytes 1 % 0-10 Automated blood basophils/100 leukocytes 0 % 0-10 Blood neutrophils automated count (number/volume) 6.2 10*3 1.8-7.8 Blood lymphocytes automated count (number/volume) 2.2 10*3 1.0-4.0 Blood monocytes automated count (number/volume) 0. 4 10*3 0.0-1.0 Automated eosinophil count 0.1 10*3/uL 0 .0-0.3 Automated blood basophil count (count/volume) 0.0 10*3/uL 0.0-0.1 Comprehensive metabolic panel - 01/04/19 18:10 Serum or plasma sodium measurement (moles/volume) 141 mmol/L 135-145 Serum or plasma potassium measurement (moles/volume) 4.1 mmol/L 3.6-5.0 Serum or plasma chloride measurement (moles/volume) 106 mmol/L 98-107 Carbon dioxide 25 mmol/L 21-32 Serum or plasma anion gap determination (moles/volume) 10 mmol/L 5-14 Serum or plasma urea nitrogen measurement (mass/volume ) 8 mg/dL 7-18 Serum or plasma creatinine measurement (mass/volume) 0.74 mg/dL 0.60-1.30 Serum or plasma urea nitrogen/creatinine mass ratio 11 NRG Serum or plasma creatinine measurement w ith calculation of estimated glomerular filtration rate > NRG Serum or plasma glucose measurement (mass/volume) 98 mg/dL 70-105 Serum or plasma calcium measurement (mass/volume) 9.6 mg/dL 8.5-10.1 Serum or plasma total bilirubin measurement (mass/volu me) 0.2 mg/dL 0.1-1.0 Serum or plasma alkaline phosphatase cassandra surement (enzymatic activity/volume) 133 U/L 40-136 Serum or plasma aspartate aminotransfera se measurement (enzymatic activity/volume) 18 U/L 5-34 Serum or plasma alanine aminotransferase measurement (enzymatic activity/volume) 45 U/L 0-55 Serum or plasma protein measurement (mass/volume) 7.0 g/dL 6.4-8.2 Serum or plasma albumin measurement (mass/volume) 4.0 g/dL 3.2-4.5 CALCIUM CORRECTED 9.6 mg/dL 8.5-10.1 Encounters ACCT No. Visit Date/Time Discharge Status Pt. Type Provider Facility Loc./Unit Complaint [id number] 01/29/2020 08:05:00 10:30:00 DIS Outpatient JOSUE GUAN MD [facility] CATARACT LEFT EYE [id number] 01/27/2020 06:06:00 09:49:00 DIS Outpatient JOSUE GUAN MD [facility] PREOP CATARACT LEFT EYE [id number] 01/15/2020 12:30:00 23:59:59 CLS Preadmit JOSUE GUAN MD [facility] SDC CATARACT LEFT EYE [id number] 12/23/2019 14:18:00 23:59:59 CLS Outpatient JOSE LEAL MD [facility] ONC [id number] 12/03/2019 13:31:00 23:59:59 CLS Outpatient JOSE LEAL MD [facility] RAD DVT OF LOWER LIMB ACUTE [id number] 08/21/2019 09:34:00 23:59:59 CLS Outpatient MIRIAM MURRAY MD [facility] RAD LOW BACK PAIN [id number] 01/04/2019 17:49:00 19:17:00 DIS Emergency CODY BERNSTEIN APRN [facility] ER LEFT CALF PAIN,SWELLING [id number] 12/17/2018 12:04:00 23:59:59 CLS Outpatient MIRIAM MURRAY MD [facility] RAD NECK PAIN [id number] 12/09/2018 14:29:00 23:59:59 CLS Preadmit MIRIAM MURRAY MD [facility] RAD ABNORMAL XRAY [id number] 08/20/2018 11:19:00 018 23:59:59 CLS Outpatient THANH ROCKWELL [employer] [facility] RAD THUMB PAIN [id number] 03/13/2017 14:23:00 017 23:59:59 CLS Outpatient MARIKA RILEY [employer] [facility] RAD COUGH,HX SMOKER [id number] 09/28/2016 10:32:00 016 13:44:00 DIS Outpatient CHANTALE RODRIGUES, KHOA [place] [facility] REHAB LUMBAGO, L HIP PAIN [id number] 08/31/2016 07:51:00 09:02:00 DIS Outpatient KHOA KENYON MD [facility] CARD M51.16 [id number] 08/17/2016 09:46:00 016 23:59:59 CLS Outpatient MIRIAM MURRAY MD [facility] RAD LT HIP DECREASED ROM,RA DICULOPATHY [id number] 01/07/2015 09:38:00 015 23:59:59 CLS Emergency JASSI RODRIGUES, EFREN [place] [facility] ER SORE THROAT/HEADACHE
== END 2020-01-29 10:30 | disposition home or self-care (01) ==
LOC: SDC 08:05
PROVIDERS: ATTEND Specialist
DX: H25.12 Age-related nuclear cataract, left eye (principal); J44.9 Chronic obstructive pulmonary disease, unspecified; G47.00 Insomnia, unspecified; M32.9 Systemic lupus erythematosus, unspecified; F17.290 Nicotine dependence, other tobacco product, uncomplicated; Z79.82 Long term (current) use of aspirin; Z85.828 Personal history of other malignant neoplasm of skin

== ENCOUNTER 2020-05-09 06:12 | Outpatient (RCR) | payer MEDICARE, OTHER ==
[~2020-05-09] VITALS: Ht 170 cm; Wt 77.0 kg
== END 2020-05-09 10:38 | disposition home or self-care (01) ==
LOC: PREOP 06:12
PROVIDERS: ATTEND Specialist
DX: Z01.818 Encounter for other preprocedural examination (principal)

== ENCOUNTER 2020-05-13 08:38 | Day surgery (SDC) | payer MEDICARE, OTHER ==
[~2020-05-13] VITALS: Ht 170 cm; Wt 77.0 kg
[2020-05-13 08:40] VITALS: BP 106/72
[2020-05-13] MEDS: PHENYLEPHRINE 10% OPHTH (NEO-SYN) 5 ML BTL OU PRN ×2 (08:50→08:59)
[2020-05-13] MEDS: TROPICAMIDE 1% OPH SOLN (MYDRIACYL) 15 ML BTL OU PRN ×2 (08:50→08:59)
[2020-05-13] MEDS: TETRACAINE 0.5% OPHTH SOLN 4 ML BTL (SINGLE DOSE ONLY) OP PRN ×2 (08:50→08:59)
[2020-05-13 09:45] VITALS: BP 106/72
--- NOTE | 2020-05-13 10:04 | Ophthalmologist Pre-Op Note ---
Pre-Operative Progress Note H&P Reviewed The H&P was reviewed, patient examined and no changes noted. Date H&P Reviewed: May 13, 2020 Time H&P Reviewed: 09:33 Pre-Op Dx Secondary Cataract, Right Eye JOSUE GUAN MD May 13, 2020 10:04
--- NOTE | 2020-05-13 10:04 | Ophthalmology Operative Report ---
YAG Capsulotomy PREOPERATIVE DIAGNOSIS: Secondary Cataract Left Eye POSTOPERATIVE DIAGNOSIS: Secondary Cataract Left Eye PROCEDURE: YAG Capsulotomy, left eye SURGEON: Ede Guan ANESTHESIA: Topical anesthesia COMPLICATIONS: None ESTIMATED BLOOD LOSS: Minimal DESCRIPTION OF PROCEDURE: After proper informed consent was obtained, the patient's, a 69 female left eye received one drop of Tropicamide and one drop of Tetracaine. The patient was then placed at the YAG laser and using a power of [3.1 ] millijoules and [ 18] bursts were used to fashion a central capsulotomy. The patient tolerated the procedure well without complications. EDE GUAN MD May 13, 2020 10:04
== END 2020-05-13 09:45 | disposition home or self-care (01) ==
LOC: SDC 08:38
PROVIDERS: ATTEND Specialist
DX: H26.492 Other secondary cataract, left eye (principal); F17.200 Nicotine dependence, unspecified, uncomplicated; J44.9 Chronic obstructive pulmonary disease, unspecified; M19.90 Unspecified osteoarthritis, unspecified site; G47.00 Insomnia, unspecified; Z85.828 Personal history of other malignant neoplasm of skin; Z79.82 Long term (current) use of aspirin

== ENCOUNTER 2021-08-31 09:26 | Emergency (ER) | payer MEDICARE, OTHER ==
[~2021-08-31] VITALS: Ht 170.2 cm; Wt 77.1 kg
[2021-08-31 10:11] LABS: BASOPHILS % (AUTO) 0 % (0-10); EOSINOPHILS # (AUTO) 0.1 10^3/uL (0.0-0.3); EOSINOPHILS % (AUTO) 1 % (0-10); HEMATOCRIT 45 % (35-52); HEMOGLOBIN 15.4 g/dL (11.5-16.0); LYMPHOCYTES # (AUTO) 2.4 10^3/uL (1.0-4.0); LYMPHOCYTES % (AUTO) 24 % (12-44); MEAN CORPUSCULAR HEMOGLOBIN 34 pg (25-34); MEAN CORPUSCULAR HGB CONC 34 g/dL (32-36); MEAN CORPUSCULAR VOLUME 100 fL (80-99); MEAN PLATELET VOLUME 10.3 fL (9.0-12.2); MONOCYTES # (AUTO) 0.5 10^3/uL (0.0-1.0); MONOCYTES % (AUTO) 5 % (0-12); NEUTROPHILS % (AUTO) 70 % (42-75); PLATELET COUNT 225 10^3/uL (130-400)
[2021-08-31 10:25] LABS: POTASSIUM 4.8 MMOL/L (3.6-5.0)
[2021-08-31 10:26] LABS: CALCIUM 10.1 MG/DL (8.5-10.1)
[2021-08-31 10:31] LABS: CREATININE SERUM 0.82 MG/DL (0.60-1.30)
--- NOTE | 2021-08-31 10:52 | ED Lower Extremity ---
General Chief Complaint: Lower Extremity Stated Complaint: R FOOT SWELLING Nursing Triage Note: PT AMB TO [facility] 5 WITH COMPLAINT OF RIGHT CALF/FOOT PAIN. STATES PAIN STARTED IN HER CALF YESTERDAY AND IS NOW IN HER FOOT. HAS HX OF DVT IN LEFT LEG. STATES TAKES BABY ASPIRIN DAILY. Source: patient Exam Limitations: no limitations History of Present Illness Date Seen by Provider: Aug 31, 2021 Time Seen by Provider: 09:52 Initial Comments Here with report of pain to the right ankle and calf. Onset yesterday. Has history of DVT in the left leg and states this feels similar to when she had that. She was on Eliquis for several months and then was able to come off that. Does have history of COPD and lupus as well as antiphospholipid disorder. She takes aspirin daily for migraines as well as concerns for blood clots. She does smoke. Denies fever chills. Denies recent illness. She is not vaccinated nor does she want to be vaccinated for COVID-19 due to concerns about adverse events. She takes appropriate precautions in the community. Onset: yesterday Severity: moderate Pain/Injury Location: right leg, right ankle Method of Injury: unknown Modifying Factors: Worse With Movement; Improves With Rest Allergies and Home Medications Allergies Uncoded Allergies: ANTIHISTIMINES (Allergy, Unknown, 01/29/20) DECONGESTANTS (Allergy, Unknown, 01/29/20) SOME ANITBIOTICS (Adverse Reaction, Unknown, 01/29/20) STOMACH UPSET Patient Home Medication List Home Medication List Reviewed: Yes Aspirin (Aspirin) 325 Mg Tablet, 325 MG PO BID, (Reported) Entered as Reported by: JONNA ROSE on 01/28/20 0939 [Essgic] , 1 TAB PO NEEDED, (Reported) Entered as Reported by: JEFFERSON SHEN on 09/19/12 1036 Review of Systems Constitutional: see HPI; No chills, No fever EENTM: No nose congestion, No throat pain Respiratory: cough (Chronic and unchanged); No short of breath Cardiovascular: No chest pain; edema (Mild right ankle) Musculoskeletal: joint pain, muscle pain Skin: change in color (redness at medial ankle) Psychiatric/Neurological: Denies Numbness, Denies Paresthesia All Other Systems Reviewed Negative Unless Noted: Yes Past Updrjhf-Mfxkgg-Rvsxba Hx Patient Social History Tobacco Use?: Yes Tobacco type used: Cigarettes Smoking Status: Current Everyday Smoker Use of E-Cig and/or Vaping dev: No Substance use?: No Alcohol Use?: No Pt feels they are or have been: No Past Medical History Surgery/Hospitalization HX: COPD, HX DVT Surgeries: Yes Appendectomy, Gallbladder, Hysterectomy, Orthopedic Respiratory: Yes COPD Cardiac: No Neurological: Yes (lyme disease) Headaches /Migraines Gastrointestinal: Yes (DIVERTICULOSIS) Musculoskeletal: Yes (lupus) Endocrine: No Cancer: No Psychosocial: No Blood Disorders: Yes Family Medical History Reviewed Nursing Family Hx No Pertinent Family Hx Physical Exam Vital Signs Vital Signs - First Documented 08/31/21 09:32 Temp 36.3 Pulse 91 Resp 16 B/P (MAP) 159/94 (115) Pulse Ox 96 O2 Delivery Room Air Capillary Refill : Less Than 3 Seconds Height, Weight, BMI Height: 5'7.50" Weight: 170lbs. 0.0oz. [id number]; 26.00 BMI Method:Stated General Appearance: WD/WN, no apparent distress HEENT: PERRL/EOMI, pharynx normal Neck: full range of motion, supple Cardiovascular: regular rate, rhythm, no murmur Respiratory: lungs clear, normal breath sounds Gastrointestinal: non tender, soft Legs: left leg non-tender, left leg normal inspection, left leg normal range of motion; right leg pain (mild), right leg soft tissue tenderness, right leg swelling (mild medial ankle) Neurologic/Tendon: normal sensation, normal motor functions, normal tendon functions Neurologic/Psychiatric: alert, oriented x 3 Skin: warm/dry; No ecchymosis Progress/Results/Core Measures Results/Orders Lab Results Laboratory Tests Test 08/31/21 09:45 Range/Units White Blood Count 10.0 4.3-11.0 10^3/uL Red Blood Count 4.54 3.80-5.11 10^6/uL Hemoglobin 15.4 11.5-16.0 g/dL Hematocrit 45 35-52 % Mean Corpuscular Volume 100 H 80-99 fL Mean Corpuscular Hemoglobin 34 25-34 pg Mean Corpuscular Hemoglobin Concent 34 32-36 g/dL Red Cell Distribution Width 12.6 10.0-14.5 % Platelet Count 225 130-400 10^3/uL Mean Platelet Volume 10.3 9.0-12.2 fL Immature Granulocyte % (Auto) 0 % Neutrophils (%) (Auto) 70 42-75 % Lymphocytes (%) (Auto) 24 12-44 % Monocytes (%) (Auto) 5 0-12 % Eosinophils (%) (Auto) 1 0-10 % Basophils (%) (Auto) 0 0-10 % Neutrophils # (Auto) 7.0 1.8-7.8 10^3/uL Lymphocytes # (Auto) 2.4 1.0-4.0 10^3/uL Monocytes # (Auto) 0.5 0.0-1.0 10^3/uL Eosinophils # (Auto) 0.1 0.0-0.3 10^3/uL Basophils # (Auto) 0.0 0.0-0.1 10^3/uL Immature Granulocyte # (Auto) 0.0 0.0-0.1 10^3/uL Sodium Level 143 135-145 MMOL/L Potassium Level 4.8 3.6-5.0 MMOL/L Chloride Level 106 98-107 MMOL/L Carbon Dioxide Level 27 21-32 MMOL/L Anion Gap 10 5-14 MMOL/L Blood Urea Nitrogen 6 L 7-18 MG/DL Creatinine 0.82 0.60-1.30 MG/DL Estimat Glomerular Filtration Rate 69 BUN/Creatinine Ratio 7 Glucose Level 91 70-105 MG/DL Calcium Level 10.1 8.5-10.1 MG/DL C-Reactive Protein High Sensitivity 1.03 H 0.00-0.50 MG/DL My Orders Orders - RAYMOND SOLO MD Basic Metabolic Panel (08/31/21 10:00) Cbc With Automated Diff (08/31/21 10:00) Hs C Reactive Protein (08/31/21 10:00) Us Venous Lower Ext Rt (08/31/21 10:00) Ed Iv/Invasive Line Start (08/31/21 10:00) Ankle, Right, 3 Views (08/31/21 10:46) Vital Signs/I&O 08/31/21 09:32 Temp 36.3 Pulse 91 Resp 16 B/P (MAP) 159/94 (115) Pulse Ox 96 O2 Delivery Room Air Blood Pressure Mean: 115 Progress Progress Note : Progress Note Seen and evaluated. IV and labs ordered. We will get ultrasound right lower extremity. Monitor patient. 1050: Ultrasound is negative for DVT. Due to the mild swelling and pain at the ankle we will go ahead and get x-ray of the right ankle. Monitor patient. 1120: X-ray negative except does show some chronic degeneration. This was discussed with the patient. Overall doing better. Dis charged home with return precautions. Patient verbalized understanding instructions and agreement with plan. Diagnostic Imaging Diagonstic Imaging: Ultrasound Plain Films/CT/US/NM/MRI: leg Comments Ultrasound right lower extremity preliminary read shows no evidence of DVT. Full report pending. Diagonstic Imaging: Xray Plain Films/CT/US/NM/MRI: ankle Comments [facility], [place] NAME: JOSÉ MIGUEL RIVERA [facility] REC#: [id number] PT STATUS: REG ER : 1950 PHYSICIAN: RAYMOND SOLO MD ADMIT DATE: 08/31/21/ER Draft Date of Exam:08/31/21 ANKLE, RIGHT, 3 VIEWS INDICATION: Ankle pain. TECHNIQUE: Three views of the right ankle. CORRELATION STUDY: None. FINDINGS: Slight spurring and fragmentation at the tip of the fibula and medial malleolus may reflect a more remote injury. No definitive acute fracture. Ankle mortise is maintained. Talar dome is intact. Mildly prominent plantar calcaneal spurring. Soft tissues are unremarkable. IMPRESSION: Negative for acute bony abnormality of the ankle. Mild degenerative and presence of prior traumatic changes about the ankle. Dictated on workstation # [id number] Dict: 08/31/21 1100 Trans: 08/31/21 1104 [id number] Interpreted by: IGLESIA CERVANTES DO Electronically signed by: Departure Impression Primary Impression: Acute right ankle pain Additional Impression: Degenerative joint disease of ankle or foot Qualified Codes: M19.071 - Primary osteoarthritis, right ankle and foot Disposition: 01 HOME, SELF-CARE Condition: Stable Departure-Patient Inst. Decision time for Depature: 11:24 Referrals: MATTHEW SPEARS MD (PCP/Family) Primary Care Physician Patient Instructions: Acute Pain, Adult (DC), Osteoarthritis (DC) Add. Discharge Instructions: All discharge instructions reviewed with patient and/or family. Voiced underst anding. Continue home medications as previously prescribed. You should consider initiating [id number] Pepcid or famotidine to decrease stomach pain. You may consider switching your aspirin to every other day. You may take Tylenol/acetaminophen 1000 mg every 6-8 hours as needed for pain. You can consider using ankle brace. You may use ice packs to area of concern 20 doug hang/h for the next few days and then as needed. Elevation in mild compression may also decrease your pain. Follow-up with your doctor for recheck and further evaluation. Return for worse pain, swelling, weakness or other concerns as needed. RAYMOND SOLO MD Aug 31, 2021 10:52
--- NOTE | 2021-08-31 11:03 | Diagnostic Imaging Report ---
INDICATION: Right leg pain. Right leg venous Doppler study was performed in the routine fashion with color flow Doppler and waveform analysis. FINDINGS: The right common femoral vein, superficial femoral vein, popliteal vein and visualized portion of the tibial veins show normal compressibility and venous flow patterns. There is normal augmentation. IMPRESSION: No evidence of deep vein thrombosis of the major veins of the right leg. Dictated by: Dictated on workstation # [id number]
--- NOTE | 2021-08-31 11:05 | Diagnostic Imaging Report ---
INDICATION: Ankle pain. TECHNIQUE: Three views of the right ankle. CORRELATION STUDY: None. FINDINGS: Slight spurring and fragmentation at the tip of the fibula and medial malleolus may reflect a more remote injury. No definitive acute fracture. Ankle mortise is maintained. Talar dome is intact. Mildly prominent plantar calcaneal spurring. Soft tissues are unremarkable. IMPRESSION: Negative for acute bony abnormality of the ankle. Mild degenerative and presence of prior traumatic changes about the ankle. Dictated by: Dictated on workstation # [id number]
[2021-08-31 11:36] VITALS: BP 148/89
== END 2021-08-31 11:36 | disposition home or self-care (01) ==
LOC: EDUNIT# 09:26 → ER 09:28
DX: M19.071 Primary osteoarthritis, right ankle and foot (principal); J44.9 Chronic obstructive pulmonary disease, unspecified; F17.210 Nicotine dependence, cigarettes, uncomplicated; Z79.82 Long term (current) use of aspirin
CPT/HCPCS: 36415; 73610; 80048; 85025; 86141

== ENCOUNTER 2022-08-24 05:29 | Outpatient (CLI) | payer MEDICARE, OTHER ==
[~2022-08-24] VITALS: Ht 170.2 cm; Wt 84.1 kg
[2022-08-27] MEDS ORDERED: BUTA1CAP42 PO (10:17)
[2022-08-27] MEDS ORDERED: VITAMINS (10:23)
== END 2022-08-27 10:27 | disposition home or self-care (01) ==
LOC: PREOP 05:29
PROVIDERS: ATTEND Specialist
DX: Z01.818 Encounter for other preprocedural examination (principal)

== ENCOUNTER 2023-07-24 14:40 | Outpatient (CLI) | payer MEDICARE, OTHER ==
[~2023-07-24] VITALS: Ht 170.2 cm; Wt 81.8 kg
[~2023-07-24 14:40] MED LIST changes: +BUTA1CAP42 PO; +VITAMINS
== END 2023-07-25 12:20 | disposition home or self-care (01) ==
LOC: PREOP 14:40
PROVIDERS: ATTEND Specialist
DX: Z01.818 Encounter for other preprocedural examination (principal)

== ENCOUNTER 2023-08-02 05:53 | Day surgery (SDC) | payer MEDICARE, OTHER ==
[~2023-08-02] VITALS: Ht 170.2 cm; Wt 81.8 kg
[2023-08-02] MEDS: TETRACAINE 0.5% OPHTH SOLN 4 ML BTL (SINGLE DOSE ONLY) OU PRN ×4 (06:11→06:33)
[2023-08-02] MEDS ORDERED: TIMOLOL 0.5% (CATARACTS) 0.3 ML BTL OU PRN (06:15)
[2023-08-02] MEDS ORDERED: MOXIFLOXACIN OPHTH SOLN 5 MG/ML 0.3 ML SYRINGE OP ONE (06:15)
[2023-08-02] MEDS ORDERED: LIDOCAINE PF 1% 2 ML VIAL IR PRN (06:15)
[2023-08-02] MEDS ORDERED: POVIDONE IODINE OPHTH SOLN 5% 30 ML OP ONE (06:15)
[2023-08-02 06:18] VITALS: BP 127/95
[2023-08-02] MEDS: PHENYLEPHRINE 10% OPHTH SOLN 5 ML BTL OU SCH ×3 (06:21→06:33)
[2023-08-02] MEDS: TROPICAMIDE 1% OPH SOLN (MYDRIACYL) 15 ML BTL OP SCH ×3 (06:21→06:33)
[2023-08-02] MEDS ORDERED: CARBACHOL 1.5 ML (MIOSTAT) VIAL IO ONE (06:30)
[2023-08-02] MEDS ORDERED: MIDAZOLAM INJ 2 MG/2 ML VIAL ONE (06:47)
--- NOTE | 2023-08-02 07:03 | Ophthalmologist Pre-Op Note ---
Pre-Operative Progress Note H&P Reviewed The H&P was reviewed, patient examined and no changes noted. Date H&P Reviewed: Aug 02, 2023 Time H&P Reviewed: 07:03 Pre-Op Dx Cataract, Right Eye JOSUE GUAN MD Aug 02, 2023 07:03
--- NOTE | 2023-08-02 07:20 | Ophthalmology Operative Report ---
Cataract removal/placement IOL PREOPERATIVE DIAGNOSIS: Cataract Left Eye POSTOPERATIVE DIAGNOSIS: Cataract Left Eye PROCEDURE: Cataract removal and placement of posterior chamber implant, left eye SURGEON: Ede Guan ANESTHESIA: Topical with sedation COMPLICATIONS: None ESTIMATED BLOOD LOSS: Minimal DESCRIPTION OF PROCEDURE: After proper informed consent was obtained, the patient, a 72 female, was taken to the Operating Room and the left eye was anesthetized with tetracaine. The left eye was then prepped and draped in the usual manner. A wire lid speculum was placed. A paracentesis was made at the left hand position. Preservative free lidocaine was injected into the anterior chamber followed by viscoelastic. A clear corneal incision was made in the temporal position. A capsulorrhexis was preformed and the central nuclear and cortical material were removed. The posterior capsule was polished and an Cachorro 21.0 [id number] was placed into the capsular bag. The residual viscoelastic was aspirated and balanced saline solution was injected into the anterior chamber. Moxifloxacin was injected into the anterior chamber. The wound was checked and found to be water tight. The patient tolerated the procedure well without complications. EDE GUAN MD Aug 02, 2023 07:20
[2023-08-02 07:24] VITALS: BP 142/90
--- NOTE | 2023-08-02 12:51 | Anesthesia-General Post-Op ---
MAC Patient Condition Mental Status/LOC: Same as Preop Cardiovascular: Satisfactory Nausea/Vomiting: Absent Respiratory: Satisfactory Pain: Controlled Complications: Absent Post Op Complications Complications None Follow Up Care/Instructions Patient Instructions None needed. Anesthesiology Discharge Order Discharge Order Patient is doing well, no complaints, stable vital signs, no apparent adverse anesthesia problems. No complications reported per nursing. CRISTOPHER GASPAR CRNA Aug 02, 2023 12:51
== END 2023-08-02 07:30 | disposition home or self-care (01) ==
LOC: SDC 05:53
PROVIDERS: ATTEND Specialist
DX: H25.9 Unspecified age-related cataract (principal); F17.200 Nicotine dependence, unspecified, uncomplicated
CPT/HCPCS: 66984; V2632